=== PATIENT | female | born 1955 | race Caucasian/White ===

== ENCOUNTER → 2016-07-21 | Outpatient (CLI) | payer MEDICARE ==
[~2016-07-21] MED LIST: ACETAMINOPHEN PO; ALPRAZOLAM PO; COLACE PO; DAZIDOX10 MG PO; DEXAMETHASONE4 M1 PO; FOLIC ACID1 MG PO; FUROSEMIDE40 MG PO; GABAPENTIN300 M2 PO; HUMIBID-LA600 MG PO; KCL PO; LEVAQUIN PO; LEVO-T25 MCG PO; LEVOTHYROXINE25 MCG PO; LEVOTHYROXINE88 MCG PO; LISINOPRIL PO; MEDROL DOSEPAK4 MG DOB; MELOXICAM15 MG PO; METOPROLOL SUCC25 MG PO; MOBIC15 MG PO; NEURONTIN100 MG PO; NEURONTIN300 MG PO; OXYCODONE HCL10 MG PO; OXYCODONE HCL5 MG PO; PREDNISONE PO; TOPROL XL PO; XANAX1 MG PO; ZESTRIL10 M1 PO
[2016-07-21 07:55] LABS: POC - CREATININE 1.4 mg/dL (0.44-1.03)
== END | disposition home or self-care (01) ==
LOC: CCAT 07:08
PROVIDERS: Internal Medicine Hematology
DX: C34.81 Malignant neoplasm of overlapping sites of right bronchus and lung (principal); C34.11 Malignant neoplasm of upper lobe, right bronchus or lung
CPT/HCPCS: 82565

== ENCOUNTER → 2016-07-22 | Outpatient (CLI) | payer MEDICARE ==
--- NOTE | ~2016-07-22 | CT55 ---
[facility] A Service of [facility] RADIOLOGY TEXT RESULTS PATIENT: ALDO TRAN LOCATION: [facility] : 51 UNIT #: [id number] AGE: [address]: Leona Armijo MD SEX: F ORDER DR: [id number] [facility] [address] [facility] [place] [facility]. [place], [place] [address] [id number] O MR#: [id number] [facility] #: [id number] NAME: ALDO TRAN : 1955 SEX: F STUDY DATE/TIME: 07/22/2016 10:06 UNIT: [facility] ROOM: STUDY DESCRIPTION: CT Chest W Con Attending Physician: Leona Armijo M.D. Ordering Physician: Leona Armijo M.D. Primary Care Physician: No Primary Care Physician MEDICAL IMAGING REPORT This report is preliminary unless electronic signature is present EXAM CT chest with contrast, 07/22/2016, 1006 hours. CLINICAL HISTORY 61-year-old woman with a history of right lung carcinoma for followup. Observation for suspected malignant neoplasm. History form does not indicate prior chemo or radiation therapy today but prior history form indicates chemotherapy. COMPARISON CT chest, 05/13/2016. TECHNIQUE Dynamic helical CT images were obtained from the thoracic inlet through the adrenal glands. Sagittal and coronal reconstructions were performed. Contrast was Isovue-370 70 mL IV. Total exam DLP 253 mGy-cm. This CT exam was performed with one or more of the following radiation dose reduction techniques: automatic exposure control, adjustment of mA and/or kV according to patient size, and iterative reconstruction. FINDINGS Images through the thoracic inlet demonstrate calcified density left lobe thyroid. There is no discrete nodule or supraclavicular adenopathy. There is a left subclavian port catheter with tip in SVC. Images through the chest demonstrate normal caliber aorta, pulmonary arteries, cardiac chambers, and pericardium are normal. There is no pathologic mediastinal, hilar, or axillary adenopathy. Benign calcified nodes are unchanged. The lungs demonstrate stable right upper lobe [facility] RADIOLOGY TEXT RESULTS PATIENT: ALDO TRAN LOCATION: [facility] : 51 UNIT #: [id number] AGE: [address]: Leona Armijo MD SEX: F ORDER DR: aspect of the suture line measuring 1.5 x 1.5 cm, previously 1.5 x 1.4 cm. There are 2 very tiny, well-circumscribed, noncalcified nodules in the left upper lobe which are stable. 1 of these may be partially calcified. There are no suspicious nodules. There is no pleural fluid. Limited views through the upper abdomen demonstrate no liver or adrenal lesion. IMPRESSION Stable chest CT with no change in nodular density along the medial aspect of the suture line in the right upper lung. There are 2 tiny noncalcified nodules in the left upper lobe which are stable. There is no pathologic adenopathy or new evidence of pulmonary disease. No effusions. Dictated by... Marichuy Cedillo M.D. THIS IS AN ELECTRONICALLY VERIFIED REPORT Marichuy Cedillo M.D. at 07/23/2016 9:26 AM ERROL/maricel TD: 07/22/2016 15:42 JOB #: [id number] MEDICAL IMAGING REPORT COPY
== END | disposition home or self-care (01) ==
LOC: CCAT 08:05
DX: Z08 Encounter for follow-up examination after completed treatment for malignant neoplasm (principal); R91.8 Other nonspecific abnormal finding of lung field; J98.4 Other disorders of lung; Z85.118 Personal history of other malignant neoplasm of bronchus and lung
CPT/HCPCS: 71260; 96360; 96361; Q9967

== ENCOUNTER → 2016-09-30 | Outpatient (CLI) | payer MEDICARE ==
[2016-09-30 15:00] LABS: POC - CREATININE 1.23 mg/dL (0.44-1.03)
== END | disposition home or self-care (01) ==
LOC: CCAT 09:04
PROVIDERS: Internal Medicine Hematology
DX: C34.11 Malignant neoplasm of upper lobe, right bronchus or lung (principal); C34.81 Malignant neoplasm of overlapping sites of right bronchus and lung; Z53.9 Procedure and treatment not carried out, unspecified reason
CPT/HCPCS: 82565

== ENCOUNTER → 2016-10-02 | Outpatient (CLI) | payer MEDICARE ==
--- NOTE | ~2016-10-02 | CT55 ---
[facility] A Service of [facility] RADIOLOGY TEXT RESULTS PATIENT: ALDO TRAN LOCATION: [facility] : 51 UNIT #: [id number] AGE: [address]: Leona Armijo MD SEX: F ORDER DR: [id number] [facility]. [place], [place] [address] [id number] O MR#: [id number] Acc #: [id number] NAME: ALDO TRAN. : 1955 SEX: F STUDY DATE/TIME: 10/02/2016 10:25 UNIT: [facility] ROOM: STUDY DESCRIPTION: CT Chest W Con Attending Physician: Leona Armijo M.D. Referring Physician: Leona Armijo M.D. Ordering Physician: Leona Armijo M.D. Primary Care Physician: Primary Care Physician No MEDICAL IMAGING REPORT This report is preliminary unless electronic signature is present EXAM CT chest INDICATIONS Lung cancer. Malignant neoplasm of the right upper lobe. Restaging. Coughing for [address] of the chest utilizing 70 mL Isovue-370 IV contrast. Coronal and sagittal reconstructions were obtained. This CT exam was performed with one or more of the following radiation dose reduction techniques: automatic exposure control, adjustment of mA and/or kV according to patient size, and iterative reconstruction. COMPARISON CT chest dated 07/22/2016. FINDINGS Patient is status post wedge resection in the right upper lobe. There is a soft tissue density near the right hilum along the resection margin. This soft tissue density measures 1.9 x 1 cm, compared to 2.0 x 1.5 cm previously (slightly different measuring techniques on today's exam). This area measured 2.1 x 1.5 cm on 05/13/2016. No new pulmonary opacities. There are a few small micronodules that are unchanged. There is background emphysema. Central airways are patent. No pericardial or pleural effusion. Limited images of the upper abdomen were obtained. There are no acute findings. [facility] A Service of [facility] RADIOLOGY TEXT RESULTS PATIENT: ALDO TRAN LOCATION: [facility] : 51 UNIT #: [id number] AGE: [address]: Leona Armijo MD SEX: F ORDER DR: IMPRESSION 1. No evidence of disease progression. 2. Soft tissue density associated with the surgical resection in the right upper lobe has decreased in size from the 05/13/2016 exam. Dictated by... Levi Sullivan M.D. THIS IS AN ELECTRONICALLY VERIFIED REPORT Levi Sullivan M.D. at 10/02/2016 3:48 PM THANH/flavio TD: 10/02/2016 11:35 JOB #: [id number] MEDICAL IMAGING REPORT Page 1 of 1 COPY
[2016-10-02 16:01] LABS: POC - CREATININE 1.28 mg/dL (0.44-1.03)
== END | disposition home or self-care (01) ==
LOC: CCAT 08:09
PROVIDERS: Internal Medicine Hematology
DX: C34.11 Malignant neoplasm of upper lobe, right bronchus or lung (principal); C34.81 Malignant neoplasm of overlapping sites of right bronchus and lung; M79.89 Other specified soft tissue disorders; Z90.2 Acquired absence of lung [part of]
CPT/HCPCS: 71260; 82565; 96360; 96361; J2405; Q9967